=== PATIENT | female | born 1995 | race Caucasian/White ===

== ENCOUNTER 2020-02-17 12:46 | Emergency (ER) | payer OTHER, SELFPAY ==
[2020-02-17 13:06] VITALS: BP 114/63; PULSE 104; RESP 16; O2SAT 99
--- NOTE | 2020-02-17 13:44 | ED.EAR ---
HPI - Ear Problem General Chief complaint: Ear Stated complaint: Ear infection Time Seen by Provider: 02/17/20 13:44 Source: patient Mode of arrival: ambulatory Limitations: no limitations History of Present Illness HPI Narrative: Netta Cotto is a 24 yo female who denies any past medical history, who comes to express care with bilateral ear pain that is worsened in the last 24 hours. She states her ear is hurt so badly that she throb at night and she is unable to sleep. States she is never had ear infections like this before. Denies swimming R doing anything that with her ears that would cause this kind of pain Related Data Allergies Allergy/AdvReac Type Severity Reaction Status Date / Time pork derived (porcine) Allergy Intermediate HIVES Verified 06/21/16 16:57 Review of Systems Review of Systems: Narrative: CONSTITUTIONAL: Denies fever, chills, sweats. EYES: Denies visual changes, redness, discharge. ENT: Denies rhinorrhea, congestion, mild sore throat, bilateral otalgia. CARDIOVASCULAR: Denies chest pain, palpitations, edema. RESPIRATORY: Denies dyspnea, wheezing, cough GASTROINTESTINAL: Denies abdominal pain, nausea, vomiting, diarrhea. GENITOURINARY: Denies dysuria, hematuria, abnormal discharge SKIN: Denies rash or itching. NEUROLOGIC: Denies numbness, or focal weakness. PSYCHIATRIC: Denies anxiety or depression. PMFSH Family History Family History Other Hypertension Social History Social History (Updated 02/17/20 @ 13:53 by Lucy Lanza CNP) Smoking status: Never smoker Alcohol intake: current Gender identity (if verbalized by the patient): Female Comments At time of signature, I agree with nursing past medical, surgical, social and family history. There is no relevant family history pertinent to the presenting complaint. Exam Narrative: Exam Narrative: GENERAL: This is a well-nourished, well-developed patient, in mild distress. HEAD: normocephalic, atraumatic. EYES: Sclera clear/white. Vision is grossly intact. EARS: External ears normal. Hearing grossly intact. Bilateral erythema -no drainage, painful to examine, mild discomfort below ear running into lower jaw NOSE: External nose normal without nasal discharge, nares without redness, mild rhinorrhea. THROAT: Mucous membranes moist, posterior pharynx mild erythema NECK: Neck supple, non-tender CARDIOVASCULAR: Regular rate and rhythm without murmurs, gallops, or rubs. RESPIRATORY: Clear to auscultation. Breath sounds equal bilaterally. No wheezes, rales, or rhonchi. GASTROINTESTINAL: Abdomen soft, non-tender, SKIN: warm, intact with no suspicious lesions or rash, good texture and turgor. NEURO: awake, alert, and oriented to person, place and time. There were no obvious focal neurologic abnormalities. Steady gait EXTREMITIES: Normal range of motion. BACK: Nontender without deformity Course Course Emergency Course: Started on prednisone eardrop, oral antibiotic and Claritin. Well patient does not have seasonal allergies has some minor nasal congestion and discussed the rationale for the medication with patient Vital Signs Vital signs: Vital Signs Pulse Rate 104 H 02/17/20 13:06 Respiratory Rate 16 02/17/20 13:06 Blood Pressure 114/63 02/17/20 13:06 Pulse Oximetry 99 02/17/20 13:06 Pulse Rate 104 H 02/17/20 13:06 Respiratory Rate 16 02/17/20 13:06 Blood Pressure 114/63 02/17/20 13:06 Pulse Oximetry 99 02/17/20 13:06 Medical Decision Making Differential Diagnosis Differential Diagnosis: Otitis externa versus otitis media versus sinusitis Vital Signs Vital Signs: Vital Signs Pulse Rate 104 H 02/17/20 13:06 Respiratory Rate 16 02/17/20 13:06 Blood Pressure 114/63 02/17/20 13:06 Pulse Oximetry 99 02/17/20 13:06 Pulse Rate 104 H 02/17/20 13:06 Respiratory Rate 16 02/17/20 13:06 Blood Pressure 114/63 02/17/20 13:06 P
== END 2020-02-17 14:05 | disposition home or self-care (01) ==
PROVIDERS: Emergency Provider Nurse Practitioner
DX: H66.003 Acute suppurative otitis media without spontaneous rupture of ear drum, bilateral (principal)
CPT/HCPCS: 99213; G0463

== ENCOUNTER 2021-03-09 18:35 | Emergency (ER) | payer OTHER, SELFPAY ==
--- NOTE | ~2021-03-09 | XR_ITS ---
XR chest 2V DATE: 03/09/2021 20:18 INDICATION: Shortness of breath TECHNIQUE: PA and lateral views COMPARISON: 12/30/2006 FINDINGS: Azygos lobe, normal variant. No pulmonary infiltrate or consolidation, pleural effusion or pulmonary vascular congestion or pneumothorax. Normal heart size. IMPRESSION: No active disease Reviewed, dictated and finalized at location A. IMPRESSION: No active disease
[2021-03-09 19:01] VITALS: BP 116/77; PULSE 99; RESP 18; TEMP 37.5; O2SAT 100
--- NOTE | 2021-03-09 20:44 | ED.GENADULT ---
HPI - General Adult General Chief complaint: Unspecified Stated complaint: COVID vaccine reaction Time Seen by Provider: 03/09/21 19:01 History of Present Illness HPI narrative: Patient is a 25-year-old female who presents ER with concerns for infection. Patient had a COVID-19 vaccination on 03/01/2021. It was a first dose with [employer]. She reports that she has had no known sick contacts. Since receiving the injection she has been having chills/body aches/subjective fever. She is also had some sinus congestion with sore throat. Reports intermittent cough and shortness of breath. No loss of taste or smell. Has been taking Mucinex without improvement. Related Data Home Medications Medication Instructions Recorded Confirmed No Home Medications 03/09/21 03/09/21 Allergies Allergy/AdvReac Type Severity Reaction Status Date / Time pork derived (porcine) Allergy Intermediate HIVES Verified 03/09/21 19:05 Review of Systems Review of Systems: All systems reviewed & are unremarkable except as noted in HPI and below Constitutional: Constitutional: Reports body ache(s), Reports chills and Reports fever(s) ENT: Reports nasal congestion and Reports sore throat Respiratory: Respiratory: Denies chest congestion, Reports cough, Reports dyspnea and Denies wheezing Gastrointestinal: Gastrointestinal: Denies abdominal pain, Denies nausea and Denies vomiting PMFSH Past Medical History Medical History (Updated 03/09/21 @ 20:47 by Antione Michel MD) Healthy female adult Surgical History Surgical History (Updated 03/09/21 @ 20:47 by Antione Michel MD) No pertinent past surgical history Family History Family History Other Hypertension Social History Social History (Updated 02/17/20 @ 13:53 by Lucy Lanza CNP) Smoking status: Never smoker Alcohol intake: current Gender identity (if verbalized by the patient): Female Exam Narrative: Exam Narrative: GENERAL: Well-appearing, well-nourished, and in no acute distress. HEAD: Normocephalic, atraumatic. ENT: Moist mucous membranes. Mild tonsillar enlargement without exudate or erythema. Uvula midline and nonedematous. CHEST: Clear to auscultation. No respiratory distress. HEART: Regular rate and rhythm. Normal peripheral pulses. ABDOMEN: Soft, nontender, nondistended. EXTREMITIES: Normal range of motion. No edema. SKIN: Warm, dry, no rash. NEURO: No focal deficits. Alert and oriented x3. PSYCH: Normal mood and affect. Course Course Emergency Course: Patient swabbed for Covid. Patient to self isolate until she receives a negative Covid test. Patient verbalized understanding. No evidence of pneumonia or strep.. Vital Signs Vital signs: Vital Signs Temperature 99.5 F 03/09/21 19:01 Pulse Rate 99 03/09/21 19:01 Respiratory Rate 18 03/09/21 19:01 Blood Pressure 116/77 03/09/21 19:01 Pulse Oximetry 100 03/09/21 19:01 Temperature 99.5 F 03/09/21 19:01 Pulse Rate 99 03/09/21 19:01 Respiratory Rate 18 03/09/21 19:01 Blood Pressure 116/77 03/09/21 19:01 Pulse Oximetry 100 03/09/21 19:01 Medical Decision Making Vital Signs Vital Signs: Vital Signs Temperature 99.5 F 03/09/21 19:01 Pulse Rate 99 03/09/21 19:01 Respiratory Rate 18 03/09/21 19:01 Blood Pressure 116/77 03/09/21 19:01 Pulse Oximetry 100 03/09/21 19:01 Temperature 99.5 F 03/09/21 19:01 Pulse Rate 99 03/09/21 19:01 Respiratory Rate 18 03/09/21 19:01 Blood Pressure 116/77 03/09/21 19:01 Pulse Oximetry 100 03/09/21 19:01 Lab Data Labs: Lab Results 03/09/21 Range/Units 19:46 SARS-CoV-2 RNA (RT-PCR) Pending Strep Screen Presumptive Negative *(Reference Range: Negative)* Discharge Plan Discharge Clinical Impression: URI (upper respiratory infection), Person under investigat
[2021-03-10 19:26] LABS: SARS-CoV-2 RNA PCR Negative
== END 2021-03-09 21:29 | disposition home or self-care (01) ==
PROVIDERS: Emergency Provider Emergency Medicine
DX: J06.9 Acute upper respiratory infection, unspecified (principal); Z20.822 Contact with and (suspected) exposure to COVID-19
CPT/HCPCS: 71046; 87081; 87880; 99283; C9803; U0003; U0005

== ENCOUNTER 2024-04-03 14:23 | Emergency (ER) | payer BC, SELFPAY ==
[2024-04-03 14:30] VITALS: BP 136/78; PULSE 78; RESP 16; TEMP 36.6; O2SAT 100
[2024-04-03 15:34] VITALS: BP 132/76; PULSE 74; RESP 16; TEMP 36.6; O2SAT 100
[2024-04-03 15:39] LABS: Basophils Percent Auto 0.5 % (0.2-1.2); Eosinophils Percent Auto 0.4 % (0-4.4); Hematocrit 39.7 % (37.0-47.0); Hemoglobin 13.5 g/dL (12.0-15.0); Immature Granulocyte Absolute 0.01 K/mm3 (0.00-0.031); Immature Granulocyte Percent A 0.1 % (0-0.5); Lymphocytes Absolute Auto 2.26 K/mm3 (0.9-3.2); Mean Corpuscular Hemoglobin 29.5 pg (26-34); Mean Corpuscular Volume 86.9 fl (80-100); Mean Platelet Volume 10.2 fl (7.4-10.4); Monocytes Absolute Auto 0.4 K/mm3 (0.1-0.6); Monocytes Percent Auto 5.7 % (2.6-8.5); Neutrophils Absolute Auto 4.8 K/mm3 (1.3-6.7); Neutrophils Percent Auto 63.3 % (45.5-73.1); Platelet Count Result 285 k/mm3 (150-375); Red Blood Count 4.57 M/mm3 (4.2-5.4); Red Cell Distribution Width 13.6 % (11.5-14.5); White Blood Count 7.5 K/mm3 (4.5-10.0)
[2024-04-03 15:48] LABS: Alanine Aminotransferase 21 U/L (6-35); Albumin Level 4.8 g/dL (3.5-5.1); Alkaline Phosphatase 45 U/L (38-126); Anion Gap 12 mmol/L (4-12); Aspartate Amino Transferase 24 U/L (14-36); Bilirubin,Total 0.7 mg/dL (0.2-1.3); Blood Urea Nitrogen 8 mg/dL (7-17); Calcium 9.2 mg/dL (8.4-10.2); Carbon Dioxide 24 mmol/L (22-30); Chloride 103 mmol/L (98-107); Estimated CRCL calculation 104 ml/min; Estimated Glomerular Filt Rate > 60; Glucose 107 mg/dL (65-110); Potassium 3.7 mmol/L (3.4-5.0); Sodium 139 mmol/L (137-145)
[2024-04-03 16:05] LABS: Beta HCG Quantitative < 2.39 mIU/ML
[2024-04-03 16:45] VITALS: BP 126/72; PULSE 72; RESP 16; TEMP 36.6; O2SAT 100
--- NOTE | 2024-04-03 16:46 | ED.FEMALEGU ---
HPI - Female Genitourinary General Chief complaint: Urogenital-Female Stated complaint: female problems Time Seen by Provider: 04/03/24 14:54 Source: patient Mode of arrival: ambulatory Limitations: no limitations History of Present Illness HPI Narrative: 28-year-old otherwise healthy here with complaints of lower abdominal cramping with intermittent vaginal bleeding on and off for past few months. She states that she is not sexually active. She denies any vaginal discharge. She is scheduled to see her OBGYN on April 09. But she is worried about this intermittent bleeding. And she has not taken any medication for her abdominal cramps. MD elicited complaint: vaginal bleeding Onset (ago): month(s) (3) Severity: moderate Female Urogenital Radiation: Non-Radiating Quality of pain: cramping Consistency: intermittent Exacerbating factors: none Relieving factors: none Associated symptoms: denies other symptoms Treatment prior to arrival: none Sexual activity: No Patient : No Related Data Home Medications Medication Instructions Recorded Confirmed No Home Medications 03/09/21 03/09/21 Allergies Allergy/AdvReac Type Severity Reaction Status Date / Time pork derived (porcine) Allergy Intermediate HIVES Verified 03/09/21 19:05 Review of Systems Review of Systems: All systems reviewed & are unremarkable except as noted in HPI and below Constitutional: Constitutional: Reports no additional constitutional complaints Eyes: Eyes: Reports no additional eye complaints ENT: Reports system reviewed and no additional complaints, except as documented Cardiovascular: Cardiovascular: Reports no additional cardiovascular complaints Respiratory: Respiratory: Reports no additional respiratory complaints Gastrointestinal: Gastrointestinal: Reports as per HPI Genitourinary: Genitourinary: Reports as per HPI Musculoskeletal: Musculoskeletal: Reports no additional musculoskeletal complaints Neurologic: Reports system reviewed and no additional complaints, except as documented Endocrine: Endocrine: Reports no additional endocrine complaints [facility] Past Medical History Medical History Healthy female adult Surgical History Surgical History No pertinent past surgical history Family History Family History Other Hypertension Social History Social History Smoking status: Never smoker Alcohol intake: current Gender identity (if verbalized by the patient): Female Exam Narrative: GENERAL: Well-appearing, well-nourished, and in no acute distress. HEAD: Normocephalic, atraumatic. EYES: PERRLA and EOMI. ENT: Nares clear, no rhinorrhea or epistaxis. Mucous membranes moist. NECK: Supple. CHEST: Clear to auscultation. No respiratory distress. HEART: Regular rate and rhythm. No murmur heard. Normal peripheral pulses. ABDOMEN: Soft, nontender, nondistended, normal active bowel sounds. EXTREMITIES: Normal range of motion. No edema. SKIN: Warm, dry, no rash. NEURO: No focal deficits. Alert and oriented x3. PSYCH: Normal mood and affect. Course Course Emergency Course: Notified patient about her lab work. Advised to follow with ACCOUNTING OFFICE MANAGER as scheduled . Take Tylenol ibuprofen for cramps. Vital Signs Vital signs: Vital Signs Temperature 36.6 C 04/03/24 14:30 Pulse Rate 78 04/03/24 14:30 Respiratory Rate 16 04/03/24 14:30 Blood Pressure 136/78 04/03/24 14:30 Pulse Oximetry 100 04/03/24 14:30 Oxygen Delivery Room Air 04/03/24 14:30 Temperature 36.6 C 04/03/24 15:34 Pulse Rate 74 04/03/24 15:34 Respiratory Rate 16 04/03/24 15:34 Blood Pressure 132/76 04/03/24 15:34 Pulse Oximetry 100 04/03/24 15:34 Oxygen Delivery Room Air 04/03/24 14:30
== END 2024-04-03 16:58 | disposition home or self-care (01) ==
PROVIDERS: Emergency Provider Family Medicine
DX: N93.9 Abnormal uterine and vaginal bleeding, unspecified (principal)
CPT/HCPCS: 36415; 80053; 84702; 85025; 99283